=== PATIENT | male | born 1980 | race Caucasian/White ===

== ENCOUNTER 2023-01-15 14:58 | Emergency (ER) | payer MEDICARE ==
[2023-01-15 15:08] VITALS: BP 128/84; PULSE 79; RESP 18; TEMP 98.3
--- NOTE | 2023-01-15 15:29 | ED ---
Upper Extremity HPI - General Chief Complaint: Extremity Injury, Upper Stated Complaint: X RAY LEFT THUMB Time Seen by Provider: 01/15/23 15:09 Source: patient, RN notes reviewed Mode of arrival: ambulatory Limitations: no limitations - History of Present Illness Initial Comments: 42-year-old male presents emergency Department with chief complaint of left thumb injury. He states he was carrying a case of water one week ago when plastic ripped causing his thumb to bend outward. Patient has complaint of left thumb pain ever sense. It is worse with movement. Denies any swelling, ecchymosis patient offers no complaints of paresthesias. - Related Data Allergies Allergy/AdvReac Type Severity Reaction Status Date / Time No Known Allergies Allergy Verified 01/15/23 15:08 Review of Systems ROS Statement: Those systems with pertinent positive or pertinent negative responses have been documented in the HPI. ROS Other: All systems not noted in ROS Statement are negative. Past Medical History Past Medical History: Hyperlipidemia, Seizure Disorder, Thyroid Disorder History of Any Multi-Drug Resistant Organisms: None Reported Past Surgical History: No Surgical Hx Reported Past Psychological History: No Psychological Hx Reported Smoking Status: Never smoker Past Alcohol Use History: None Reported Past Drug Use History: None Reported General Exam Limitations: no limitations General appearance: alert, in no apparent distress Head exam: Present: atraumatic, normocephalic, normal inspection Eye exam: Present: normal appearance, PERRL, EOMI. Absent: scleral icterus, conjunctival injection, periorbital swelling Respiratory exam: Present: normal lung sounds bilaterally. Absent: respiratory distress, wheezes, rales, rhonchi, stridor Cardiovascular Exam: Present: regular rate, normal rhythm, normal heart sounds. Absent: systolic murmur, diastolic murmur, rubs, gallop, clicks Extremities exam: Present: other (Left thumb there is mild tenderness at the interphalangeal joints, neurovascular intact no carpal or metacarpal tenderness) Course Vital Signs 01/15/23 15:06 Temperature 98.3 F Pulse Rate 79 Respiratory 18 Rate Blood Pressure 128/84 O2 Sat by Pulse 99 Oximetry Medical Decision Making - Medical Decision Making Was pt. sent in by a medical professional or institution (, PA, CONTINUOUS IMPROVEMENT LEAD, urgent care, hospital, or residential...) When possible be specific @ -No Did you speak to anyone other than the patient for history (EMS, parent, family, police, friend...)? What history was obtained from this source @ -No Did you review nursing and triage notes (agree or disagree)? Why? @ -I reviewed and agree with nursing and triage notes Were old charts reviewed (outside hosp., previous admission, EMS record, old EKG, old radiological studies, urgent care reports/EKG's, residential records)? Report findings @ -No old charts were reviewed Differential Diagnosis (chest pain, altered mental status, abdominal pain women, abdominal pain men, vaginal bleeding, weakness, fever, dyspnea, syncope, headache, dizziness, GI bleed, back pain, seizure, CVA, palpatations, mental health, musculoskeletal)? @ -Thumb sprain, thumb fracture EKG interpreted by me (3pts min.). @ -None X-rays interpreted by me (1pt min.). @ -X-ray of the left thumb there is no acute fracture or dislocation CT interpreted by me (1pt min.). @ -None done U/S interpreted by me (1pt. min.). @ -None done What testing was considered but not performed or refused? (CT, X-rays, U/S, labs)? Why? @ -None What meds were considered but not given or refused? Why? @ -None Did you discuss the management of the patient with other professionals (professionals i.e. , PA, CONTINUOUS IMPROVEMENT LEAD, lab, RT, psych nurse, family welfare social work professor, siebel architect, teacher, senior credit officer, case technician)? Give summary @ -No Was smoking cessation discussed for >3mins.? @ -No Was critical care preformed (if so, how long)? @ -No Were there social determinants of health that impacted care today? How? (Homelessness, low income, unemployed, alcoholism, drug addiction, transportation, low edu. Level, literacy, decrease access to med. care, intermediate, rehab)? @ -No Was there de-escalation of care discussed even if they declined (Discuss DNR or withdrawal of care, Hospice)? DNR status @ -No What co-morbidities impacted this encounter? (DM, HTN, Smoking, COPD, CAD, Cancer, CVA, ARF, Chemo, Hep., AIDS, mental health diagnosis, sleep apnea, morbid obesity)? @ -None Was patient admitted / discharged? Hospital course, mention meds given and route, prescriptions, significant lab abnormalities, going to OR and other pertinent info. @ -Discharge patient is a left thumb sprain patient will continue conservative treatment and follow-up with orthopedics as needed. Undiagnosed new problem with uncertain prognosis? @ -No Drug Therapy requiring intensive monitoring for toxicity (Heparin, Nitro, Insulin, Cardizem)? @ -No Were any procedures done? @ -No Diagnosis/symptom? @ -Left thumb sprain Acute, or Chronic, or Acute on Chronic? @ -Acute Uncomplicated (without systemic symptoms) or Complicated (systemic symptoms)? @ -Uncomplicated Side effects of treatment? @ -No Exacerbation, Progression, or Severe Exacerbation? @ -No Poses a threat to life or bodily function? How? (Chest pain, [place], [place], pneumonia, PE, COPD, DKA, ARF, appy, cholecystitis, CVA, Diverticulitis, Homicidal, Suicidal, threat to staff... and all critical care pts) @ -No Disposition Clinical Impression: Left thumb sprain Disposition: HOME SELF-CARE Condition: Stable Instructions (If sedation given, give patient instructions): Hand Sprain (ED) Additional Instructions: Please return to the Emergency Department if symptoms worsen or any other concerns. Is patient prescribed a controlled substance at d/c from ED?: No Referrals: Felipe Barber MD [Primary Care Provider] - 1-2 days Time of Disposition: 16:04
--- NOTE | 2023-01-15 15:56 | XR ---
EXAMINATION TYPE: XR finger LT DATE OF EXAM: 01/15/2023 3:52 PM INDICATION: Patient age:Male; 42 years old; Reason for study: trauma, left thumb; PHH. COMPARISON: None TECHNIQUE: Frontal, lateral and oblique views of the first digit of the left hand were obtained. FINDINGS: Normal alignment of the visualized joints. No acute osseous pathology is identified. No e vidence of soft tissue swelling. No radiopaque foreign body. IMPRESSION: No acute osseous pathology.
== END 2023-01-15 16:39 | disposition home or self-care (01) ==
LOC: EC 14:58
DX: S63.602A Unspecified sprain of left thumb, initial encounter (principal); W22.8XXA Striking against or struck by other objects, initial encounter
CPT/HCPCS: 99283

== ENCOUNTER → 2023-02-21 | Outpatient (CLI) | payer MEDICARE ==
[2023-02-21 15:57] LABS: HCT 50.1 % (39.6-50.0); HGB 16.8 d/dL (13.0-17.0); MCH 32.2 pg (27.0-32.0); MCHC 33.5 d/dL (32.0-37.0); Mean Platelet Volume 9.8 FL (9.5-12.2); NRBC Per 100 WBC 0 X 10*3/uL (0.00-0.01); Platelet Count 219 X 10*3/uL (140-440); RBC 5.22 X 10*6/uL (4.40-5.60); RDW 12.2 % (11.5-14.5); WBC 11.29 X 10*3/uL (4.50-10.00)
[2023-02-21 16:32] LABS: Basophils # (M) 0 X 10*3/uL (0.00-0.10)
[2023-02-21 16:34] LABS: Eosinophils # (M) 0.11 X 10*3/uL (0.04-0.35); Lymphocytes # (M) 5.76 X 10*3/uL (0.90-5.00); Monocytes # (M) 0.68 X 10*3/uL (0.20-1.00); Neutrophils % (M) 42 %
[2023-02-21 16:57] LABS: BUN/Creat Ratio 9.88 Ratio (12.00-20.00); Blood Urea Nitrogen 7.9 mg/dL (9.0-27.0); Calcium 9.6 mg/dL (8.7-10.3); Chloride 104 mmol/L (96-109); Glucose 73 mg/dL (70-110); Potassium 4.5 mmol/L (3.5-5.5); Sodium 143 mmol/L (135-145)
== END | disposition home or self-care (01) ==
LOC: LABWHC1 09:19
PROVIDERS: ATTEND Family Medicine
DX: E78.5 Hyperlipidemia, unspecified (principal)
CPT/HCPCS: 36415; 80048; 85025

== ENCOUNTER → 2024-08-06 | Outpatient (CLI) | payer MEDICARE ==
--- NOTE | 2024-08-06 16:53 | US ---
EXAMINATION TYPE: US venous doppler duplex LE BI DATE OF EXAM: 08/06/2024 4:35 PM COMPARISON: NONE CLINICAL INDICATION: Male, 44 years old with history of R60.0 LOCALIZED EDEMA; , Pain TECHNIQUE: The lower extremity deep venous system is examined utilizing real time linear array sonog huy with graded compression, color doppler sonography, and spectral doppler. SIDE PERFORMED: Bilateral FINDINGS: VESSELS IMAGED: Common Femoral Vein Deep Femoral Vein Greater Saphenous Vein * Femoral Vein Popliteal Vein Small Saphenous Vein * Proximal Calf Veins (* superficial vessels) slightly limited exam due to body habitus Right Leg: appears negative for DVT. There is compressibility with spectral venous waveforms and col or flow identified within the visualized right lower extremity. Poor visualization of the calf veins due to severe edema. Left Leg: appears negative for DVT. There is compressibility with spectral venous waveforms and colo r flow identified within the visualized left lower extremity. Poor visualization of the calf veins du e to severe edema. IMPRESSION: No visualized deep venous thrombosis of the bilateral lower extremities. Evaluation of the bilateral calves is limited due to severe edema. [facility], , 08/06/2024 4:50 PM
== END | disposition home or self-care (01) ==
LOC: RADUSWWP 15:58
PROVIDERS: ATTEND Family Medicine
DX: R60.0 Localized edema (principal)
CPT/HCPCS: 93970